=== PATIENT | male | born 1995 | race African-American/Black ===

== ENCOUNTER 2018-05-20 13:14 | Emergency (ER) | payer SELFPAY ==
--- NOTE | 2018-05-20 13:43 | EDM.PDOC ---
<Toni Rangel J - Last Filed: 05/20/18 13:38> ED HPI GENERAL MEDICAL PROBLEM - General Chief Complaint: Upper Extremity Injury/Pain Stated Complaint: RIGHT HAND SMASHED Time Seen by Provider: 05/20/18 13:30 - History of Present Illness INITIAL COMMENTS - FREE TEXT/NARRATIVE: HISTORY AND PHYSICAL: History of present illness: Patient 23-year-old black male presenting concern of acute injury to third and fourth digit of his left hand got caught in a door he sustained abrasions to both digits he denies other trauma concern is not up-to-date on his tetanus Review of systems: As per history of present illness and below otherwise all systems reviewed and negative. Past medical history: As per history of present illness and as reviewed below otherwise noncontributory. Surgical history: As per history of present illness and as reviewed below otherwise noncontributory. Social history: No reported history of drug or alcohol abuse. Family history: As per history of present illness and as reviewed below otherwise noncontributory. Physical exam: HEENT: Atraumatic, normocephalic, pupils reactive, negative for conjunctival pallor or scleral icterus, mucous membranes moist, throat clear, neck supple, nontender, trachea midline. Lungs: Clear to auscultation, breath sounds equal bilaterally, chest nontender. Heart: S1S2, regular, negative for clicks, rubs, or JVD. Abdomen: Soft, nondistended, nontender. Negative for masses or hepatosplenomegaly. Negative for costovertebral tenderness. Pelvis: Stable nontender. Genitourinary: Deferred. Rectal: Deferred. Extremities: Patient has 2 abrasions with superficial avulsions dorsal aspect third and fourth digits right hand CMS neurovascular unremarkable tendon exam normal Neuro: Awake, alert, oriented. Cranial nerves II through XII unremarkable. Cerebellum unremarkable. Motor and sensory unremarkable throughout. Exam nonfocal. Diagnostics: X-ray left hand Therapeutics: Tetanus update Impression: #1 acute right hand injury Definitive disposition and diagnosis as appropriate pending reevaluation and review of above. - Related Data Allergies Allergy/AdvReac Type Severity Reaction Status Date / Time No Known Allergies Allergy Verified 05/20/18 13:33 Home Meds: Home Meds . [No Known Home Meds] 05/20/18 [History] Past Medical History - Past Health History Medical/Surgical History: Denies Medical/Surgical History Social & Family History - Family History Family Medical History: Noncontributory - Tobacco Use Smoking Status *Q: Never Smoker Second Hand Smoke Exposure: No - Caffeine Use Caffeine Use: Reports: None - Recreational Drug Use Recreational Drug Use: No Review of Systems - Review of Systems Review Of Systems: ROS reveals no pertinent complaints other than HPI. ED EXAM, GENERAL - Physical Exam Exam: See Below Course - Vital Signs Last Recorded V/S: Last Vital Signs Temp 98.6 F 05/20/18 13:29 Pulse 72 05/20/18 13:29 Resp 18 05/20/18 13:29 BP 111/60 05/20/18 13:29 Pulse Ox 98 05/20/18 13:29 - Orders/Labs/Meds Orders: Active Orders 24 hr Category Date Time Status Vaccines to be Administered [RC] PER UNIT ROUTINE Care 05/20/18 13:44 Active Meds: Medications Discontinued Medications Generic Name Dose Route Start Last Admin Trade Name Freq PRN Reason Stop Dose Admin Diphtheria/Tetanus/Acell Pertussis 0.5 ml 05/20/18 13:44 05/20/18 14:00 Adacel IM 05/20/18 13:45 0.5 ml .ONCE ONE Administration Departure - Departure Disposition: Home, Self-Care 01 Clinical Impression: Injury of right hand Qualifiers: Encounter type: initial encounter Qualified Code(s): S69.91XA - Unspecified injury of right wrist, hand and finger(s), initial encounter - Discharge Information Referrals: PCP,None [Primary Care Provider] - Forms: ED Department Discharge Additional Instructions: The following information is given to patients seen in the emergency department who are being discharged to home. This information is to outline your options for follow-up care. We provide all patients seen in our emergency department with a follow-up referral. The need for follow-up, as well as the timing and circumstances, are variable depending upon the specifics of your emergency department visit. If you don't have a primary care physician on staff, we will provide you with a referral. We always advise you to contact your personal physician following an emergency department visit to inform them of the circumstance of the visit and for follow-up with them and/or the need for any referrals to a consulting specialist. The emergency department will also refer you to a specialist when appropriate. This referral assures that you have the opportunity for follow-up care with a specialist. All of these measure are taken in an effort to provide you with optimal care, which includes your follow-up. Under all circumstances we always encourage you to contact your private physician who remains a resource for coordinating your care. When calling for follow-up care, please make the office aware that this follow-up is from your recent emergency room visit. If for any reason you are refused follow-up, please contact the [facility] Emergency Department at and asked to speak to the emergency department charge nurse. [facility] [address] [place] [id number] [facility] - Orthopedic [facility] Professional [facility] [address] [place] [address], [address] [place] [address] 1. Rest, ice and elevate the affected extremity. Keep the skin clean and dry. Continue to monitor for signs of infection. 2. Tylenol and/or ibuprofen as needed for pain management. 3. Please follow-up with your primary care provider and/or the orthopedic provider in the next 1-2 days for further evaluation and management. Return to the ED as needed and as discussed. <Matias Jimenez - Last Filed: 05/20/18 14:21> Review of Systems - Review of Systems Review Of Systems: ROS reveals no pertinent complaints other than HPI. ED EXAM, GENERAL - Physical Exam Exam: See Below Departure - Departure Time of Disposition: 14:20
[2018-05-20] MEDS ORDERED: Diphtheria,Pertussis(Acell),Tetanus Vaccine 0.5 ML Syringe IM ONE (13:44)
--- NOTE | 2018-05-20 14:08 | CR ---
EXAMINATION: Right hand HISTORY: Pain COMPARISON: None TECHNIQUE: 3 views FINDINGS/IMPRESSION: There is no acute osseous abnormality, dislocation, or fracture. Bone mineralization and joint spaces are preserved. No soft tissue swelling or foreign body.
[2018-05-20] MEDS ORDERED: Bacitracin Oint 1 GM U/D Packet TOP ONE (14:23)
== END 2018-05-20 14:34 | disposition home or self-care (01) ==
LOC: MW.ED 13:14
DX: S61.202A Unspecified open wound of right middle finger without damage to nail, initial encounter (principal); S61.204A Unspecified open wound of right ring finger without damage to nail, initial encounter; W23.0XXA Caught, crushed, jammed, or pinched between moving objects, initial encounter; Z23 Encounter for immunization
CPT/HCPCS: 73130-26-RT; 73130-RT; 90471; 90715; 99283-25

== ENCOUNTER 2022-02-22 15:53 | Emergency (ER) | payer SELFPAY ==
[2022-02-22] MEDS ORDERED: Lidocaine 2% Viscous Solution 15 ML UD PO ONE (16:45)
[2022-02-22] MEDS ORDERED: Benzocaine 20% Topical Spray UD MUCMEM ONE (16:45)
== END 2022-02-22 17:00 | disposition home or self-care (01) ==
LOC: MW.ED 15:53
DX: K03.2 Erosion of teeth (principal)
CPT/HCPCS: 99282; A9270; 99283